=== PATIENT | female | born 1985 | race Caucasian/White ===

== ENCOUNTER 2021-10-13 09:49 | Emergency (ER) | payer BC, SELFPAY ==
--- NOTE | ~2021-10-13 | XR_ITS ---
EXAMINATION: XR heel RT min 2V DATE: 10/13/2021 10:17 INDICATION: Right Achilles tendon pain. TECHNIQUE: 2 views of right calcaneus on 3 radiographs were obtained. COMPARISON: None. FINDINGS: Bone alignment is normal. No fracture. Joint spaces are normal. There are small enthesophyt es at posterior and plantar aspects of calcaneal tuberosity. IMPRESSION: 1. No fracture. Reviewed, dictated and finalized at location A. IMPRESSION: 1. No fracture.
--- NOTE | 2021-10-13 09:56 | ED.LOWEXIN ---
HPI - Extremity Injury (Lower) General Chief Complaint: Extremity Injury, Lower Stated Complaint: Right Heel Pain Time Seen by Provider: 10/13/21 10:18 Source: patient and RN notes reviewed Mode of arrival: ambulatory Limitations: no limitations History of Present Illness HPI Narrative: 36-year-old female presents with concern for right heel pain that started 2 weeks ago. Reports pain worsens with certain range of motion of the foot. Reports a pulling type pain when she walks. She reports a slight numbness and tingling in the back of her foot. She denies any direct injury or trauma. She denies redness, warmth, swelling, open skin. MD complaint: foot injury Related Data Home Medications Medication Instructions Recorded Confirmed citalopram 20 mg PO DAILY 10/13/21 10/13/21 sulfamethoxazole-trimethoprim 1 tablet PO QID 10/13/21 10/13/21 Allergies Allergy/AdvReac Type Severity Reaction Status Date / Time No Known Allergies Allergy Unverified 10/13/21 10:01 Review of Systems Review of Systems: CONSTITUTIONAL: Denies malaise, chills, sweats, or fever. SKIN: Denies rash or itching, open skin, laceration, abrasion, redness, warmth, swelling. MUSCULOSKELETAL: Reports right heel pain NEUROLOGIC: Denies numbness, weakness All systems reviewed & are unremarkable except as noted in HPI and below PMFSH Comments At time of signature, agree with nursing past medical, surgical, social and family history. There is no relevant family history pertinent to the presenting complaint Exam Narrative: GENERAL: Well-appearing, well-nourished, and in no acute distress. HEAD: Normocephalic, atraumatic. EYES: PERRLA, conjunctivae clear NECK: Supple. CHEST: Speaks in full sentences. No respiratory distress. HEART: Regular rate and rhythm. Normal and equal peripheral pulses. EXTREMITIES: Right ankle, foot, digits have normal strength and sensation, normal range of motion. No edema or ecchymosis. 5/5 strength with ankle and digit flexion and extension. Normal sensation with sensitivity to light touch and pain. No point tenderness. No open wounds, no skin tenting, no devitalized tissue or atrophy, no trophic changes, no obvious deformity, alignment normal, nearby joints and structures intact. Distal pulses palpable and equal bilaterally, skin warm, dry, pink. Capillary refill less than 3 seconds. SKIN: Warm, dry, no rash. NEURO: Alert and oriented x3. PSYCH: Normal mood and affect Course Course Emergency Course: Patient is aware of diagnosis, understands and agrees to treatment plan. Anticipatory guidance given. Patient agrees to follow-up as directed and is aware of reasons to seek care at the emergency department. Portions of this record may have been created with voice recognition software Level of Care: Express Care Visit Vital Signs Vital signs: Reviewed. MDM - Extremity Injury (Lower) MDM Narrative Medical decision making narrative: Patients pain is consistent with musculoskeletal etiology. No signs of neurological or vascular compromise on exam. Compartments and tissues are soft without signs of compartment syndrome. Pain is felt appropriate for further evaluation on an outpatient basis. Critical Care Time Critical Care Time Critical Care Time: No Discharge Plan Discharge Clinical Impression: Calcaneal spur Qualifiers: Laterality: right Qualified Code(s): M77.31 - Calcaneal spur, right foot Patient Disposition: Home, Self-Care Condition: Stable Instructions: Heel Spur (ED) Additional Instructions: Your x-ray shows very small bone spur which may or may not be causing her pain. Please follow-up with podiatry for further evaluation. You may use supportive shoes or shoe inserts to improve pain. Take ibuprofen 2-3 times a day for the next 3 to 4 days for inflammation. If you have any urgent concerns please go to the emergency room. Prescriptions: No Action citalopram 20 mg tablet 20 mg PO DAILY RF: 0 sulf
[2021-10-13 09:57] VITALS: BP 139/89; PULSE 84; RESP 16; TEMP 36.7; O2SAT 99
== END 2021-10-13 10:34 | disposition home or self-care (01) ==
PROVIDERS: Emergency Provider Nurse Practitioner; PCP Internal Medicine
DX: M77.31 Calcaneal spur, right foot (principal); Z85.41 Personal history of malignant neoplasm of cervix uteri
CPT/HCPCS: 73650; 99203; G0463

== ENCOUNTER 2021-12-10 10:28 | Emergency (ER) | payer BC, SELFPAY ==
[2021-12-10 10:40] VITALS: BP 130/85; PULSE 90; RESP 20; TEMP 36.9; O2SAT 99
--- NOTE | 2021-12-10 11:40 | ED.GENADULT ---
HPI - General Adult General Chief complaint: Upper Respiratory Infection Stated complaint: needs influenza test for work Source: patient Mode of arrival: ambulatory Limitations: no limitations History of Present Illness HPI narrative: Patient presents for evaluation of sick symptoms since yesterday. Symptoms include sinus congestion, body aches, sore throat, productive cough of thick green sputum. No fever, chills, nausea, vomiting, diarrhea. She had COVID in June of this year. They were recently individuals at her place of employment that had flu. She has already taken a COVID test which was negative. She uses an electronic cigarette. No additional complaints or concerns. Related Data Home Medications Medication Instructions Recorded Confirmed citalopram 20 mg tablet 20 mg PO DAILY 10/13/21 12/10/21 venlafaxine 75 mg capsule,extended 1 cap PO DAILY 12/10/21 12/10/21 release 24 hr Allergies Allergy/AdvReac Type Severity Reaction Status Date / Time No Known Allergies Allergy Unverified 12/10/21 10:48 [facility] Past Medical History Medical History History of cervical cancer Tobacco use Surgical History Surgical History No pertinent past surgical history Family History Family History Father Hypertension Heart disease Social History Social History Smoking status: Current every day smoker Tobacco type: e-cigarettes/vaping Substance use: never Living arrangements: with family Gender identity (if verbalized by the patient): Female Sexual Orientation (if Verbalized by the Patient): Straight or Heterosexual Spiritual care concerns: No Exam Narrative: GENERAL: Well-appearing, well-nourished, and in no acute distress. HEAD: Normocephalic, atraumatic. EYES: PERRLA and EOMI. ENT: Nares clear, no rhinorrhea or epistaxis. Mucous membranes moist. Oropharynx without tonsillar hypertrophy exudate or other lesions. Bilateral TMs pearly coulter nonbulging NECK: Supple. No adenopathy or masses. No carotid bruits or JVD CHEST: Clear to auscultation. No respiratory distress. No wheezes rales or rhonchi HEART: Regular rate and rhythm. No murmur heard. Normal peripheral pulses. ABDOMEN: Soft, nontender, nondistended, normal active bowel sounds. EXTREMITIES: Normal range of motion. No edema. SKIN: Warm, dry, no rash. NEURO: No focal deficits. Alert and oriented x3. PSYCH: Normal mood and affect. Course Course Emergency Course: This is a 36-year-old female who presented with complaints of sick symptoms. She had already had a COVID test which was negative. Influenza and strep were negative. Exam is consistent with acute viral syndrome. Offered prescription for symptom management. She declined. Follow-up outpatient for further evaluation and treatment. She has some eutv-adr-zifpuje remedies at home. Increase hydration. Go to the ER for declining condition. Patient agreed with plan of care. Level of Care: Express Care Visit Vital Signs Vital signs: Vital Signs Temperature 36.9 C 12/10/21 10:40 Pulse Rate 90 12/10/21 10:40 Respiratory Rate 20 12/10/21 10:40 Blood Pressure 130/85 12/10/21 10:40 Pulse Oximetry 99 12/10/21 10:40 Oxygen Delivery Room Air 12/10/21 10:40 Temperature 36.9 C 12/10/21 10:40 Pulse Rate 90 12/10/21 10:40 Respiratory Rate 20 12/10/21 10:40 Blood Pressure 130/85 12/10/21 10:40 Pulse Oximetry 99 12/10/21 10:40 Oxygen Delivery Room Air 12/10/21 10:40 Medical Decision Making Vital Signs Vital Signs: Vital Signs Temperature 36.9 C 12/10/21 10:40 Pulse Rate 90 12/10/21 10:40 Respiratory Rate 20 12/10/21 10:40 Blood Pressure 130/85 12/10/21 10:40 Pulse Oximetry 99 12/10/21 10:40 Oxygen Delivery Room Air 12/10/21 10:40
== END 2021-12-10 12:45 | disposition home or self-care (01) ==
PROVIDERS: Emergency Provider Nurse Practitioner; PCP Internal Medicine
DX: J06.9 Acute upper respiratory infection, unspecified (principal); F17.290 Nicotine dependence, other tobacco product, uncomplicated; Z85.41 Personal history of malignant neoplasm of cervix uteri; Z86.16 Personal history of COVID-19
CPT/HCPCS: 87081; 87804; 87880; 99213; G0463

== ENCOUNTER 2022-01-31 16:15 | Emergency (ER) | payer BC, SELFPAY ==
[2022-01-31 16:20] VITALS: BP 134/87; PULSE 99; RESP 18; TEMP 36.3; O2SAT 98
--- NOTE | 2022-01-31 16:51 | ED.GENADULT ---
HPI - General Adult General Chief complaint: Skin/Abscess/Foreign Body Stated complaint: poison jeanie / ring worm Source: patient Mode of arrival: ambulatory Limitations: no limitations History of Present Illness HPI narrative: Patient presents for evaluation of skin issues. She indicates she has had pruritic lesions to the bilateral lower and bilateral upper extremities for about 1.5 weeks. She had been pulling weeds prior to that time and believes she was exposed to poison jeanie. She now has scabbed lesions to extremities x 4. Pruritus is improving. No new lotions, soaps, detergents, topical products prior to the time of symptom onset. She also reports a pruritic area of erythema to the right hand. She believes she has ringworm. She tried some wdlb-izf-lcnrybp agent with some mild improvement in her symptoms or after. No additional complaints or concerns Related Data Home Medications Medication Instructions Recorded Confirmed citalopram 20 mg tablet 20 mg PO DAILY 10/13/21 12/10/21 venlafaxine 75 mg capsule,extended 1 cap PO DAILY 12/10/21 12/10/21 release 24 hr Allergies Allergy/AdvReac Type Severity Reaction Status Date / Time No Known Allergies Allergy Unverified 01/31/22 16:44 Review of Systems Review of Systems: CONSTITUTIONAL: Denies fever, chills, or sweats. EYES: Denies visual changes, redness, or discharge. ENT: Denies rhinorrhea, congestion, sore throat, or otalgia. CARDIOVASCULAR: Denies chest pain, palpitations, or edema. RESPIRATORY: Denies cough or dyspnea. GASTROINTESTINAL: Denies abdominal pain, nausea, vomiting, or diarrhea. GENITOURINARY: Denies dysuria or hematuria. SKIN: Reports itching to extremities x4. Reports scabbed lesions to extremities x4. Reports annular area of erythema to the right hand. MUSCULOSKELETAL: Denies back pain, joint pain, or myalgia. NEUROLOGIC: Denies headache, numbness, dizziness, or weakness. PSYCHIATRIC: Denies anxiety or depression. [facility] Past Medical History Medical History History of cervical cancer Tobacco use Surgical History Surgical History No pertinent past surgical history Family History Family History Father Hypertension Heart disease Social History Social History Smoking status: Current every day smoker Tobacco type: e-cigarettes/vaping Substance use: never Gender identity (if verbalized by the patient): Female Sexual Orientation (if Verbalized by the Patient): Straight or Heterosexual Spiritual care concerns: No Exam Narrative: GENERAL: Well-appearing, well-nourished, and in no acute distress. HEAD: Normocephalic, atraumatic. EYES: PERRLA and EOMI. ENT: Nares clear, no rhinorrhea or epistaxis. Mucous membranes moist. Oropharynx without tonsillar hypertrophy exudate or other lesions. Bilateral TMs pearly coulter nonbulging NECK: Supple. No adenopathy or masses. No carotid bruits or JVD CHEST: Clear to auscultation. No respiratory distress. No wheezes rales or rhonchi HEART: Regular rate and rhythm. No murmur heard. Normal peripheral pulses. ABDOMEN: Soft, nontender, nondistended, normal active bowel sounds. EXTREMITIES: Normal range of motion. No edema. SKIN: There is an annular area of erythema to the right hand. There are several scabbed lesions noted to bilateral upper extremities. There are many scabbed lesions to BLE NEURO: No focal deficits. Alert and oriented x3. PSYCH: Normal mood and affect. Course Course Emergency Course: This is a 37-year-old female who presented for evaluation of skin issues. She appears to have tinea infection of her right hand. We will treat with ketoconazole. She has been exposed to poison jeanie and has several scabbed lesions to her bilateral upper extremities and many skin lesions to bilateral lower extre
== END 2022-01-31 16:45 | disposition home or self-care (01) ==
PROVIDERS: Emergency Provider Nurse Practitioner; PCP Internal Medicine
DX: L23.7 Allergic contact dermatitis due to plants, except food (principal); B35.4 Tinea corporis; Z85.41 Personal history of malignant neoplasm of cervix uteri; F17.290 Nicotine dependence, other tobacco product, uncomplicated
CPT/HCPCS: 99213; G0463

== ENCOUNTER 2023-04-01 13:28 | Emergency (ER) | payer BC, SELFPAY ==
--- NOTE | ~2023-04-01 | XR_ITS ---
EXAMINATION: XR hip RT 2V w AP pelvis DATE: 04/01/2023 14:07 INDICATION: Right hip pain post fall TECHNIQUE: Anteroposterior view of the pelvis and anteroposterior and frog-leg lateral views of the r ight hip were obtained. COMPARISON: None. FINDINGS: Bone alignment is normal. No fracture. Mild osteoarthritis of the bilateral sacroiliac joints. Bilate ral hip joint spaces appear relatively preserved. Small right os acetabulum. A few phleboliths in the pelvis. IMPRESSION: 1. Mild bilateral sacroiliac osteoarthritis. No acute osseous abnormality. Reviewed, dictated and finalized at location A.
--- NOTE | ~2023-04-01 | XR_ITS ---
EXAMINATION: XR lumbar spine min 4V DATE: 04/01/2023 14:07 INDICATION: Low back pain post fall TECHNIQUE: Anteroposterior, lateral, and bilateral oblique views of the lumbar spine, and cone-down l ateral view of the lumbosacral junction were obtained. COMPARISON: None. FINDINGS: Alignment is normal. Vertebral body heights are normal. Mild disc height loss with mild degenerative endplate changes at T10-T11 through L3-L4. Minimal disc height loss at L4-L5 and L5-S1. No pars inter articularis defects. No fractures identified. Mild to moderate lower lumbar predominant facet osteoar thritis. The bowel gas pattern is unremarkable. IMPRESSION: 1. Mild lumbar spondylosis. Reviewed, dictated and finalized at location A. IMPRESSION: 1. Mild lumbar spondylosis.
[2023-04-01 13:40] VITALS: BP 118/76; PULSE 89; RESP 16; TEMP 36.7; O2SAT 98
--- NOTE | 2023-04-01 13:45 | ED.FALL ---
HPI - Fall General Chief Complaint: Back Pain/Injury Stated Complaint: Fall Injury/Low Back and Hip Pain Right History of Present Illness HPI Narrative: PATIENT PRESENTS FOR EVALUATION OF A FALL THAT OCCURRED 1 WEEK AGO. PATIENT STATES SHE IS RECEIVED CHEMO AND RADIATION FOR CERVICAL CANCER 2 YEARS AGO AND CONTINUES TO HAVE RIGHT LOWER BACK HIP PAIN. PATIENT REPORTS TAKING IBUPROFEN WITH MINIMAL RELIEF IN HER PAIN AND DISCOMFORT. PATIENT DENIES ANY NUMBNESS OR TINGLING NO BOWEL OR BLADDER PROBLEMS. NO SADDLE ANESTHESIA Related Data Home Medications Medication Instructions Recorded Confirmed venlafaxine 75 mg capsule,extended 1 cap PO DAILY 12/10/21 04/01/23 release 24 hr Allergies Allergy/AdvReac Type Severity Reaction Status Date / Time No Known Allergies Allergy Verified 04/01/23 13:45 Review of Systems Review of Systems: CONSTITUTIONAL: DENIES FEVER, CHILLS, OR SWEATS. EYES: DENIES VISUAL CHANGES, REDNESS, OR DISCHARGE. ENT: DENIES RHINORRHEA, CONGESTION, SORE THROAT, OR OTALGIA. CARDIOVASCULAR: DENIES CHEST PAIN, PALPITATIONS, OR EDEMA. RESPIRATORY: DENIES COUGH OR DYSPNEA. GASTROINTESTINAL: DENIES ABDOMINAL PAIN, NAUSEA, VOMITING, OR DIARRHEA. GENITOURINARY: DENIES DYSURIA OR HEMATURIA. SKIN: DENIES RASH OR ITCHING. MUSCULOSKELETAL: DENIES BACK PAIN, JOINT PAIN, OR MYALGIA. NEUROLOGIC: DENIES HEADACHE, NUMBNESS, OR WEAKNESS. PSYCHIATRIC: DENIES ANXIETY OR DEPRESSION. [facility] Past Medical History Medical History History of cervical cancer Tobacco use Surgical History Surgical History No pertinent past surgical history Family History Family History Father Hypertension Heart disease Social History Social History Smoking status: Current every day smoker Tobacco type: e-cigarettes/vaping Substance use: never Living arrangements: with family Gender identity (if verbalized by the patient): Female Sexual Orientation (if Verbalized by the Patient): Straight or Heterosexual Spiritual care concerns: No Comments AT TIME OF SIGNATURE, AGREE WITH NURSING PAST MEDICAL, SURGICAL, SOCIAL AND FAMILY HISTORY. THERE IS NO RELEVANT FAMILY HISTORY PERTINENT TO THE PRESENTING COMPLAINT Exam Narrative: GENERAL: WELL-APPEARING, WELL-NOURISHED, AND IN NO ACUTE DISTRESS. HEAD: NORMOCEPHALIC, ATRAUMATIC. EYES: PERRLA AND EOMI. ENT: NARES CLEAR, NO RHINORRHEA OR EPISTAXIS. MUCOUS MEMBRANES MOIST. NECK: SUPPLE. CHEST: CLEAR TO AUSCULTATION. NO RESPIRATORY DISTRESS. HEART: REGULAR RATE AND RHYTHM. NO MURMUR HEARD. NORMAL PERIPHERAL PULSES. ABDOMEN: SOFT, NONTENDER, NONDISTENDED, NORMAL ACTIVE BOWEL SOUNDS. EXTREMITIES: NORMAL RANGE OF MOTION. NO EDEMA. RIGHT-SIDED BACK PAIN BACK PAIN RIGHT-SIDED SPINE MIDLINE. NO CURVATURE APPARENT. NO NOVERTEBRAL POINT SPECIFIC TENDERNESS. NO DEFORMITY. NO STEP-OFFS. NORMAL LE STRENGTH BILATERALLY. NORMAL LE SENSATION BILATERALLY. ABLE TO WALK ON TOES AND HEELS WITH NORMAL DORSIFLEXION AND PLANTAR FLEXION STRENGTH. NO WEAKNESS OBSERVED WITH GAIT. RIGHT PARASPINAL MUSCLE TENDERNESS. RIGHT SI JOINT TENDERNESS. FLEXION AND EXTENSION ROM NORMAL, ONLY SLIGHT LIMITATION. SKIN: WARM, DRY, NO RASH. NEURO: NO FOCAL DEFICITS. ALERT AND ORIENTED X3. TARA COMA SCALE EYE OPENING: SPONTANEOUS 4 TARA COMA SCALE MOTOR: OBEYS COMMANDS 6 TARA COMA SCALE VERBAL: ORIENTED 5 TARA COMA SCALE TOTAL 15 Course Course Level of Care: Express Care Visit Vital Signs Vital signs: Vital Signs Temperature 36.7 C 04/01/23 13:40 Pulse Rate 89 04/01/23 13:40 Respiratory Rate 16 04/01/23 13:40 Blood Pressure 118/76 04/01/23 13:40 Pulse Oximetry 98 04/01/23 13:40 Oxygen Delivery Room Air 04/01/23 13:40 Temperature 36.7 C 04/01/23 13:40 Pulse Rate 89 04/01/23 1
== END 2023-04-01 15:12 | disposition home or self-care (01) ==
PROVIDERS: Emergency Provider Nurse Practitioner Family; PCP Internal Medicine
DX: M54.50 Low back pain, unspecified (principal); W19.XXXA Unspecified fall, initial encounter; F17.290 Nicotine dependence, other tobacco product, uncomplicated; Z92.21 Personal history of antineoplastic chemotherapy; Z92.3 Personal history of irradiation; Z85.41 Personal history of malignant neoplasm of cervix uteri
CPT/HCPCS: 72110; 73502; 99214; G0463

== ENCOUNTER 2023-07-23 10:42 | Emergency (ER) | payer BC, SELFPAY ==
[2023-07-23 10:50] VITALS: BP 119/71; PULSE 87; RESP 20; TEMP 36.8; O2SAT 98
--- NOTE | 2023-07-23 10:53 | ED.GENADULT ---
HPI - General Adult General Chief complaint: Headache Stated complaint: migraine Source: patient, RN notes reviewed and old records reviewed Mode of arrival: ambulatory Limitations: no limitations History of Present Illness HPI narrative: 48-year-old female presents to [facility] with complaint of headache this started 5 days ago. Patient states has a history of migraine. This is like her normal migraine. Patient taking pgzq-ffy-cymeuar medications with no relief. Patient denies any other symptoms MD complaint: headache Onset (ago): day(s) (5) Related Data Home Medications Medication Instructions Recorded Confirmed No Home Medications 07/23/23 07/23/23 Allergies Allergy/AdvReac Type Severity Reaction Status Date / Time No Known Allergies Allergy Verified 07/23/23 10:49 Review of Systems Constitutional: Constitutional: Reports no additional constitutional complaints, Denies body ache(s), Denies chills, Denies fatigue, Denies fever(s) and Reports headache(s) Eyes: Eyes: Reports no additional eye complaints and Denies blurry vision ENT: Reports system reviewed and no additional complaints, except as documented, Denies vertigo, Denies dizziness, Denies ear discharge, Denies otalgia, Denies facial pain, Denies headache(s), Denies nasal congestion, Denies nasal discharge, Denies sinus pain, Denies sinus pressure and Denies sore throat Cardiovascular: Cardiovascular: Reports no additional cardiovascular complaints, Denies chest pain, Denies chest pain at rest, Denies rapid heart rate and Denies dyspnea Respiratory: Respiratory: Reports no additional respiratory complaints, Denies chest congestion, Denies cough, Denies pain on inspiration, Denies pain with cough and Denies dyspnea Gastrointestinal: Gastrointestinal: Denies abdominal pain, Denies diarrhea, Denies nausea and Denies vomiting Integumentary/Breasts: Skin/Breast: Denies rash Neurologic: Reports system reviewed and no additional complaints, except as documented, Denies vertigo, Denies dizziness and Reports headache(s) Endocrine: Endocrine: Denies fatigue PMFSH Past Medical History Medical History History of cervical cancer Tobacco use Surgical History Surgical History No pertinent past surgical history Family History Family History Father Hypertension Heart disease Social History Social History Smoking status: Current every day smoker Tobacco type: e-cigarettes/vaping Substance use: never Living arrangements: with family Gender identity (if verbalized by the patient): Female Sexual Orientation (if Verbalized by the Patient): Straight or Heterosexual Spiritual care concerns: No Comments At the time of my signature, I reviewed and agree with the nursing past medical, surgical, social, and family history. There is no relevant family history pertinent to the patient complaint. Exam Const: General: cooperative, healthy appearing, no acute distress and well nourished Nutritional Appearance: well nourished Orientation/consciousness: patient oriented x3 Limitations: no limitations HENMT: Head: normal to inspection and normocephalic Ears: external ears normal, TM's normal bilaterally, mastoids normal and Abnormal EAC present Face/Nose/Sinus: normal facial exam Face and sinus: normal facial exam Mouth: Yes Normal oral and palatal mucosa present, Yes oropharynx normal and Yes moist mucous membranes Throat: tonsils normal, uvula midline and no uvular edema Eyes: General: appearance normal, both eyes and all related structures Sclera: sclerae normal Pupils: Equal, round and reactive pupils present Resp: Effort & Inspection: normal respiratory effort, able to speak in complete sentences, no audible wheezes, no cough, no respiratory distress and no retractions
[2023-07-23] MEDS: KETOROLAC (*BKC) 60 MG/2 ML VIAL IM (11:11)
== END 2023-07-23 11:30 | disposition home or self-care (01) ==
PROVIDERS: Emergency Provider Registered Nurse; PCP Internal Medicine
DX: G43.919 Migraine, unspecified, intractable, without status migrainosus (principal); F17.290 Nicotine dependence, other tobacco product, uncomplicated; Z85.41 Personal history of malignant neoplasm of cervix uteri
CPT/HCPCS: 96372; 99213; G0463; J1885

== ENCOUNTER 2023-10-12 12:14 | Emergency (ER) | payer BC, SELFPAY ==
[2023-10-12 12:25] VITALS: BP 136/68; PULSE 106; RESP 16; TEMP 36.2; O2SAT 98
--- NOTE | 2023-10-12 12:46 | ED.URI ---
HPI - URI/Sore Throat General Chief Complaint: Upper Respiratory Infection Stated Complaint: sinus/aches/throat/fever Time Seen by Provider: 10/12/23 12:47 Source: patient, RN notes reviewed and old records reviewed Mode of arrival: ambulatory Limitations: no limitations History of Present Illness HPI Narrative: 38-year-old female presents to the [facility] with body aches, sore throat, subjective fever and sinus congestion that started yesterday. Has taken ibuprofen. 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(s) (1) Related Data Allergies Allergy/AdvReac Type Severity Reaction Status Date / Time No Known Allergies Allergy Verified 10/12/23 13:16 Review of Systems Review of Systems: All systems reviewed & are unremarkable except as noted in HPI and below Constitutional: Constitutional: Reports as per HPI and Reports body ache(s) Eyes: Eyes: Reports no additional eye complaints ENT: Reports as per HPI, Reports nasal congestion, Reports sinus pain and Reports sore throat Cardiovascular: Cardiovascular: Reports no additional cardiovascular complaints, Denies chest pain and Denies dyspnea Respiratory: Respiratory: Reports no additional respiratory complaints, Denies chest congestion, Denies cough and Denies dyspnea Gastrointestinal: Gastrointestinal: Reports no additional gastrointestinal complaints, Denies abdominal pain, Denies nausea and Denies vomiting Musculoskeletal: Musculoskeletal: Reports no additional musculoskeletal complaints Integumentary/Breasts: Skin/Breast: Reports system reviewed and no additional complaints, except as docu Neurologic: Reports system reviewed and no additional complaints, except as documented Psychiatric: Psychiatric: Reports no additional psychiatric complaints Allergic/Immunologic: Allergic/Immunologic: Reports no additional allergic/immunologic complaints [facility] Past Medical History Medical History History of cervical cancer Tobacco use Surgical History Surgical History No pertinent past surgical history Family History Family History Father Hypertension Heart disease Social History Social History Smoking status: Current every day smoker Tobacco type: e-cigarettes/vaping Substance use: never Living arrangements: with family Gender identity (if verbalized by the patient): Female Sexual Orientation (if Verbalized by the Patient): Straight or Heterosexual Spiritual care concerns: No Comments At the time of my signature, I reviewed and agree with the nursing past medical, surgical, social, and family history. There is no relevant family history pertinent to the patient complaint. Exam Const: General: cooperative, healthy appearing, comfortable, no acute distress, well developed, alert and well nourished Nutritional Appearance: well nourished Orientation/consciousness: patient oriented x3 Limitations: no limitations HENMT: Head: normal to inspection Ears: hearing grossly normal bilaterally, external ears normal, TM's normal bilaterally, EAC's normal, mastoids normal and no periauricular adenopathy Face/Nose/Sinus: Normal external nose present, Normal nares present, Normal nasal mucous membranes and turbinates present, normal facial exam and face symmetric Face and sinus: normal facial exam and face symmetric Mouth: Yes Normal oral and palatal mucosa present, Yes lip normal and Yes moist mucous membranes Throat: posterior oropharynx normal, tonsils normal, uvula midline, postnasal drainage and no uvular edema Eyes: General: appearance normal, both eyes and all related structures Alignment and Position: alignment normal Periorbital: periorbital findings normal Pupils: Equal, round and reactive pupils present EOM: EOMs intact bilaterally Neck: Neck: normal visual inspection, full
== END 2023-10-12 13:22 | disposition home or self-care (01) ==
PROVIDERS: Emergency Provider Nurse Practitioner; PCP Internal Medicine
DX: J02.0 Streptococcal pharyngitis (principal); Z20.822 Contact with and (suspected) exposure to COVID-19; F17.290 Nicotine dependence, other tobacco product, uncomplicated; Z85.41 Personal history of malignant neoplasm of cervix uteri
CPT/HCPCS: 87426; 87804; 87880; 99213; G0463

== ENCOUNTER 2024-04-11 08:25 | Emergency (ER) | payer SELFPAY ==
[2024-04-11 08:29] VITALS: BP 113/61; PULSE 95; RESP 18; TEMP 36.3; O2SAT 99
--- NOTE | 2024-04-11 08:38 | ED.URI ---
HPI - URI/Sore Throat General Chief Complaint: Upper Respiratory Infection Stated Complaint: poss pnuemonia Time Seen by Provider: 04/11/24 08:38 Source: patient Mode of arrival: ambulatory Limitations: no limitations History of Present Illness HPI Narrative: 39-year-old female presents with complaint of cough, chest congestion, fatigue, body aches for 3-4 days. Patient reports that she has had pneumonia exposure. States that her son was in ICU for mycoplasma pneumonia. Patient is afebrile. Reports shortness of breath with exertion. Not taking any qsgm-jml-ozyawfu medications to treat her symptoms. All systems reviewed and negative except as noted above. Related Data Home Medications Medication Instructions Recorded Confirmed Effexor 04/11/24 Allergies Allergy/AdvReac Type Severity Reaction Status Date / Time No Known Allergies Allergy Verified 04/11/24 08:39 Review of Systems Review of Systems: CONSTITUTIONAL: Denies fever, chills, or sweats. EYES: Denies visual changes, redness, or discharge. ENT: Reports rhinorrhea, congestion. Denies sore throat, or otalgia. CARDIOVASCULAR: Denies chest pain, palpitations, or edema. RESPIRATORY: reports cough, chest congestion, dyspnea with exertion. GASTROINTESTINAL: Denies abdominal pain, nausea, vomiting, or diarrhea. GENITOURINARY: Denies dysuria or hematuria. SKIN: Denies rash or itching. MUSCULOSKELETAL: Denies back pain, joint pain, or myalgia. NEUROLOGIC: Denies headache, numbness, or weakness. PSYCHIATRIC: Denies anxiety or depression. All other systems reviewed are negative, except as documented in HPI. [facility] Past Medical History Medical History History of cervical cancer Tobacco use Surgical History Surgical History No pertinent past surgical history Family History Family History Father Hypertension Heart disease Social History Social History Smoking status: Current every day smoker Tobacco type: e-cigarettes/vaping Substance use: never Living arrangements: with family Gender identity (if verbalized by the patient): Female Sexual Orientation (if Verbalized by the Patient): Straight or Heterosexual Spiritual care concerns: No Comments At time of signature, agree with nursing past medical, surgical, social and family history. There is no relevant family history pertinent to the presenting complaint. Exam Narrative: GENERAL: This is a well-nourished, well-developed patient, Ill-appearing but no acute distress HEAD: normocephalic, atraumatic. EYES: PERRL. Sclera clear/white. Vision is grossly intact. EARS: External ears normal, auditory canals clear and without drainage, TMs normal without perforation. Hearing grossly intact. NOSE: External nose normal with clear nasal drainage, mild congestion THROAT: Mucous membranes moist, posterior pharynx clear. NECK: Neck supple, non-tender without lymphadenopathy, masses or thyromegaly. CARDIOVASCULAR: Regular rate and rhythm without murmurs, gallops, or rubs. RESPIRATORY: mildly decreased to lower lung rosas otherwise clear. Breath sounds equal bilaterally. No wheezes, rales, or rhonchi. SKIN: warm, Dry, intact with no suspicious lesions or rash, good texture and turgor. NEURO: awake, alert, and oriented to person, place and time. There were no obvious focal neurologic abnormalities. EXTREMITIES: No joint tenderness, effusion, or edema noted. Course Course Level of Care: Express Care Visit Vital Signs Vital signs: Vital Signs Temperature 36.3 C L 04/11/24 08:29 Pulse Rate 95 04/11/24 08:29 Respiratory Rate 18 04/11/24 08:29 Blood Pressure 113/61 04/11/24 08:29 Pulse Oximetry 99 04/11/24 08:29 Oxygen Delivery Room Air 04/11/24 08:29 Temperature 36.3 C L 04/11/24 08:29 Pulse Rate 95 04/11/24 08:29 Respiratory Rate 18 04/11/24 08:29 Blood Pressure 113/61 04/11/24 08:29 Pulse Oximetry 99 04/11/24 08:29 Oxygen Delivery Room Air 04/11/24 08:29 reviewed MDM - URI/Sore Throat MDM Narrative Medical decision making narrative: will treat patient for a pneumonia exposure with azithromycin due to patient's son recently and ICU for pneumonia. No respiratory distress , vital signs stable. Patient is aware of diagnosis, understands and agrees to treatment plan. Anticipatory guidance given. Patient agrees to follow-up as directed and is aware of reasons to seek care at the emergency department. Portions of this record may have been created with voice recognition software Differential Diagnosis Differential diagnosis: Likely upper respiratory infection, sinusitis, viral infection, bronchitis, influenza and other ( pneumonia) Discharge Plan Discharge Clinical Impression: Upper respiratory infection with cough and congestion, Exposure to pneumonia Patient Disposition: Home, Self-Care Condition: Stable Instructions: Antibiotic Form, Pneumonia (ED) Additional Instructions: take medications as prescribed. Take [id number] Mucinex as directed on packaging. Drink at least 64 oz of water a day. Follow-up your primary care physician if symptoms are not improving. Prescriptions: New azithromycin 250 mg tablet See Rx Instructions .ROUTE .COMPLEX Qty: 6 0RF Rx Instructions: For 250 mg dose pack: take 500 mg today (day 1), then 250 mg for 4 days (days 2-5) benzonatate 200 mg capsule 200 mg PO TID PRN (Reason: cough) Qty: 20 0RF No Action Effexor Follow-up/Referrals: Memo,MD Poly [Primary Care Provider] - Time of Disposition: 08:44
== END 2024-04-11 08:47 | disposition home or self-care (01) ==
PROVIDERS: Emergency Provider Nurse Practitioner Family; PCP Internal Medicine
DX: J06.9 Acute upper respiratory infection, unspecified (principal); Z20.89 Contact with and (suspected) exposure to other communicable diseases; F17.290 Nicotine dependence, other tobacco product, uncomplicated; Z85.41 Personal history of malignant neoplasm of cervix uteri
CPT/HCPCS: 99213; G0463

== ENCOUNTER 2024-06-14 18:05 | Emergency (ER) | payer SELFPAY ==
[2024-06-14 18:10] VITALS: BP 127/71; PULSE 115; RESP 20; TEMP 37.4; O2SAT 98
--- NOTE | 2024-06-14 18:18 | ED.URI ---
HPI - URI/Sore Throat General Chief Complaint: Upper Respiratory Infection Stated Complaint: Fever/Dizziness/Cough Time Seen by Provider: 06/14/24 18:18 Source: patient Mode of arrival: ambulatory Limitations: no limitations History of Present Illness HPI Narrative: 39-year-old female presents with complaint of cough, congestion, fatigue, body aches, chills for 2 days with tactile fever. Taking eirj-mgt-jwjppdb [place] cold and flu to treat symptoms. Reports mild nausea. No vomiting or diarrhea. No chest pain or shortness of breath. Took two home COVID test and both were negative. All systems reviewed and negative except as noted above. Related Data Home Medications ?Medication ?Instructions ?Recorded ?Confirmed ?Last Taken ?Type Effexor 04/11/24 Unknown History Allergies Allergy/AdvReac Type Severity Reaction Status Date / Time No Known Allergies Allergy Verified 04/11/24 08:39 Review of Systems Review of Systems: CONSTITUTIONAL: reports fever, chills, or sweats. EYES: Denies visual changes, redness, or discharge. ENT: reports rhinorrhea, congestion. Denies sore throat, or otalgia. CARDIOVASCULAR: Denies chest pain, palpitations, or edema. RESPIRATORY: reports cough or dyspnea. GASTROINTESTINAL: Denies abdominal pain. Reports nausea. Denies vomiting, or diarrhea. GENITOURINARY: Denies dysuria or hematuria. SKIN: Denies rash or itching. MUSCULOSKELETAL: Denies back pain, joint pain, or myalgia. NEUROLOGIC: Denies headache, numbness, or weakness. PSYCHIATRIC: Denies anxiety or depression. All other systems reviewed are negative, except as documented in HPI. [facility] Past Medical History Medical History History of cervical cancer Tobacco use Surgical History Surgical History No pertinent past surgical history Family History Family History Father Hypertension Heart disease Social History Social History Smoking status: Current every day smoker Tobacco type: e-cigarettes/vaping Substance use: never Living arrangements: with family Gender identity (if verbalized by the patient): Female Sexual Orientation (if Verbalized by the Patient): Straight or Heterosexual Spiritual care concerns: No Comments At time of signature, agree with nursing past medical, surgical, social and family history. There is no relevant family history pertinent to the presenting complaint. Exam Narrative: GENERAL: This is a well-nourished, well-developed patient, ill-appearing but no acute distress HEAD: normocephalic, atraumatic. EYES: PERRL. Sclera clear/white. Vision is grossly intact. EARS: External ears normal, auditory canals clear and without drainage, TMs normal without perforation. Hearing grossly intact. NOSE: External nose normal with clear nasal drainage, mild congestion THROAT: Mucous membranes moist, mild erythema with postnasal drainage. No swelling or exudates NECK: Neck supple, non-tender without lymphadenopathy, masses or thyromegaly. CARDIOVASCULAR: Regular rate and rhythm without murmurs, gallops, or rubs. RESPIRATORY: Clear to auscultation. Breath sounds equal bilaterally. No wheezes, rales, or rhonchi. SKIN: warm, Dry, intact with no suspicious lesions or rash, good texture and turgor. NEURO: awake, alert, and oriented to person, place and time. There were no obvious focal neurologic abnormalities. EXTREMITIES: No joint tenderness, effusion, or edema noted. Course Course Level of Care: Express Care Visit Vital Signs Vital signs: Vital Signs Temperature 37.4 C 06/14/24 18:10 Pulse Rate 115 H 06/14/24 18:10 Respiratory Rate 20 06/14/24 18:10 Blood Pressure 127/71 06/14/24 18:10 Pulse Oximetry 98 06/14/24 18:10 Oxygen Delivery Room Air 06/14/24 18:10 Temperature 37.4 C 06/14/24 18:10 Pulse Rate 115 H 06/14/24 18:10 Respiratory Rate 20 06/14/24 18:10 Blood Pressure 127/71 06/14/24 18:10 Pulse Oximetry 98 06/14/24 18:10 Oxygen Delivery Room Air 06/14/24 18:10 reviewed MDM - URI/Sore Throat MDM Narrative Medical decision making narrative: Patient is aware of diagnosis, understands and agrees to treatment plan. Anticipatory guidance given. Patient agrees to follow-up as directed and is aware of reasons to seek care at the emergency department. Portions of this record may have been created with voice recognition software influenza test was negative. Patient had negative home COVID test. Recommend patient continue ghli-noi-vurivqi medications to treat viral symptoms. Lungs clear to auscultation, patient nontoxic. Differential Diagnosis Differential diagnosis: Likely upper respiratory infection, viral infection and influenza Lab Data Labs: Lab Results 06/14/24 Range/Units 18:16 POC Influenza A Ag Negative (Negative) POC Influenza B Ag Negative (Negative) Discharge Plan Discharge Clinical Impression: Acute viral syndrome Patient Disposition: Home, Self-Care Condition: Stable Instructions: Viral Syndrome (ED) Additional Instructions: Your influenza test was negative today. Your symptoms are viral and may last 10-14 days. Continue taking hdfn-uzd-etwijal [place] to treat her symptoms. Take ibuprofen every 6-8 hours as needed for pain and fever. Drink at least 64 oz of water a day. Follow-up with your primary care physician if symptoms are not improving. Patient Language: German Prescriptions: No Action Effexor azithromycin 250 mg tablet See Rx Instructions .ROUTE .COMPLEX Qty: 6 0RF Rx Instructions: For 250 mg dose pack: take 500 mg today (day 1), then 250 mg for 4 days (days 2-5) benzonatate 200 mg capsule 200 mg PO TID PRN (Reason: cough) Qty: 20 0RF Follow-up/Referrals: Memo,MD Poly [Primary Care Provider] - Stand Alone Forms: Work/School Release IP Time of Disposition: 18:36
[2024-06-14 18:31] LABS: EDINFLUASCREEN Negative (Negative); EDINFLUBSCREEN Negative (Negative)
== END 2024-06-14 18:47 | disposition home or self-care (01) ==
PROVIDERS: Emergency Provider Nurse Practitioner Family; PCP Internal Medicine
DX: B34.9 Viral infection, unspecified (principal); F17.290 Nicotine dependence, other tobacco product, uncomplicated; Z85.41 Personal history of malignant neoplasm of cervix uteri
CPT/HCPCS: 87804; 99212; G0463

== ENCOUNTER 2025-01-10 08:29 | Emergency (ER) | payer OTHER, SELFPAY ==
--- OUTSIDE RECORDS SUMMARY | 2025-01-10 08:35 | XMS_ITS ---
Author Organization [facility] Address [facility] [place] [address] Care Team Providers Care Endocrinology Nurse Name Role Phone Poly Hampton MD Primary Care Provider [phone] Active Problems Problem Noted Date Diagnosed Date Iron (Fe) deficiency anemia 10/21/2020 Leukopenia due to antineoplastic chemotherapy Iron deficiency anemia 10/20/2020 Encounter for management of peripherally inserted central catheter (PICC) 10/07/2020 Cervix cancer ([facility]) 09/24/2020 Cervical cancer, FIGO stage IIB ([facility] ) 09/03/2020 Current Treatment and Therapy Plans CISplatin Q7D w/RT (max 75 mg)* Plan Start Date:09/22/2020 Plan Provider:Sergio Adame MD Linked Problems Malignant neoplasm of cervix , unspecified site ([facility]) Treatment Medications CISplatin (PLATINOL) chemo infusion (with additi ves) iron sucrose (VENOFER) every 7 days* Plan Start Date:10/22/2020 Plan Provider:Sergio Adame MD Linked Problems Cervical cancer, FIGO stage IIB ([facility])Iron deficiency anemia, unspecified iron deficiency anemia type Treatment Medications No medications scheduled. Other Current Plans Adult Oncology Blank Supportive Template* Plan Start Date:10/07/2020 Plan Provider:Sergio Adame MD Linked Problems Encounter for management of peripherally inserted central catheter (PICC) Treatment Medications No medications scheduled. Past Treatment and Therapy Plans
--- OUTSIDE RECORDS SUMMARY | 2025-01-10 08:35 | XMS_ITS | Clinical Summary ---
Author Organization [facility] Address [address] [place] [address] Phone Care Team Providers Care Aviation Survival Technician Name Role Phone Melissa Christensen MD Unavailable [phone] Robinson Jackson MD PhD Unavailable [phone] Luke Canales MD Unavailable [phone] Fabien Huang MD Unavailable [phone] Andreas Barkley MD Unavailable [phone] Annelise Ardon APRN, CABLE TESTERS HELPER Primary Care Provider Monster Chew MD Unavailable Allergies Active Allergy Reactions Criticality Noted Date Comments Food Unknown 09/29/2020 Sweet tarts Medications citalopram (CeleXA) 20 MG Tablet Take 20 mg by mouth daily. Active ferrous sulfate 325 (65 Fe) MG Tablet Take 1 Tab by mouth daily. 30 Tab 0 Active Additional Information Patient not taking.Reported on 12/10/2024 ibuprofen (MOTRIN) 800 MG Tablet Take 1 Tablet by mouth every 8 hours. 20 Tablet 1 Active Additional Information Patient not taking.Reported on 12/10/2024 HYDROcodone-millie taminophen (NORCO) 5-325 MG TabletIndicatio ns:Open wound of right middle finger due to cat bite Take 1 Tablet by mouth every 8 hours as needed for Moderate or more severe pain. 12 Tablet Active Additional Information Patient not taking.Reported on 12/10/2024 venlafaxine (EFFEXOR) 75 MG Tablet Take 75 mg by mouth daily. Active Active Problems Problem Noted Date Diagnosed Date Cervical cancer, FIGO stage IIB 09/03/2020 Encounters Date Type Department Care Team Description 12/11/2024 Results Follow-Up [facility] Endocrinology [facility] [place] [address] [place] [address] Monster Chew MD THYROID STIMULATING HORMONE (TSH), THYROXINE (T4) FREE, TRIIODOTHYRININE (T3) TOTAL 12/10/2024 2:30 PM CDT Office Visit [facility] [address] [place] [address] Monster Chew MD Subclinical hyperthyroidism (Primary Dx) Discharge Disposition: Discharged to home or Selfcare 12/10/2024 Travel 11/15/2024 9:22 AM CDT - 11/15/2024 10:00 AM CDT Emergency [facility] Emergency [address] [place] [address] Juan J Damon MD Malaise Discharge Disposition: Discharged to home or Selfcare 11/15/2024 Travel 11/04/2024 Transcribe Orders [facility] Central Scheduling [address] [place] [address] Annelise Ardon, COAT JOINER LOCKSTITCH, CABLE TESTERS HELPER Right hip pain (Primary Dx) from Last 3 Months Immunizations Immunization Administration Dates Next Due Covid-19, Mrna, Lnp-s, Pf, 30 Mcg/0.3 Ml Dose (P fizer) 04/28/2021 Influenza, Injectable, Quadrivalent 04/22/2020 TDAP Vaccine 12/25/2023,06/24/2017 Social History Tobacco Use Types Packs/Day Years Used Date Smoking Tobacco: Former Smokeless Tobacco: Never Alcohol Use Standard Drinks/Week Comments Never 0 (1 standard drink = 0.6 oz pur e alcohol) Comments No Sex and Gender Information Value Date Recorded Sex Assigned at Not on file Legal Sex Female 8:32 PM CDT Gender Identity Not on file Sexual Orientation Not on file Last Filed Vital Signs Vital Sign Reading Time Taken Comments Blood Pressure 120/72 12/10/2024 2:36 PM CDT Pulse 97 12/10/2024 2:36 PM CDT Temperature 36.3 C (97.4 F) 12/10/2024 2:36 PM CDT Respiratory Rate 22 12/10/2024 2:36 PM CDT Oxygen Saturation 97% 12/10/2024 2:36 PM CDT Inhaled Oxygen Concentration - - Weight 98.8 kg (217 lb 12.8 oz) 12/10/2024 2:36 PM CDT Height 170.2 cm (5' 7) 11/15/2024 9:25 AM CDT Body Mass Index 34.11 11/15/2024 9:25 AM CDT Plan of Treatment Upcoming Encounters Date Type Department Care Team (Late st Contact Info) Description 03/12/2025 2:30 PM CDT Office Visit [facility] - [place] [address] [place] [address] Monster Chew MD [address] [address] Health Maintenance Due Date Last Done Comments Hepatitis C Virus (HCV) Screening 1987 Hepatitis B Immunization (1 of 3 - 19+ 3-dose series) 2006 Pneumococcal Immunization Combined (1 of 2 - PCV) 2006 SARS-COV-2 Immunization (3 - Pfizer risk series) 05/27/2021 04/29/2021, 04/28/2021, 06/26/2020 Influenza Immunization (#1) 2025 04/22/2020 Td Immunization Every 10 Yea rs (Adults With 1 Tdap) 12/24/2033 12/25/2023, 06/24/2017 Respiratory Syncytial Virus (RSV) Immunization (Adult) (1 - 1-dose 75+ series) 2062 DTaP/Tdap/Td Immunization Discontinued 2023, 06/24/2017 TdaP Immunization Discontinued 12/25/2023, 06/24/2017 Human Papillomavirus (HPV) Immunization Aged Out No longer eligible based on patient's age to complete this topic Meningococcal Immunization (ACWY) Aged Out No longer eligible based on patient's age to complete this topic Rotavirus Immunization Aged Out No lo nger eligible based on patient's age to complete this topic Procedures Procedure Name Priority Date/Time Associated Diagnosis Comments THYROXINE (T4) FREE Routine 12/10/2024 4 :13 PM CDT Subclinical hyperthyroidism THYROID STIMULATING HORMONE (TSH) Routine 12/10/2024 4:13 PM CDT Subclinical hyperthyroidism TRIIODOTHYRININE (T3) TOTAL Routine 12/10/2024 3:25 PM CDT Subclinical hyperthyroidism EKG 12 LEAD STAT 11/15/2024 9:31 AM CDT CARDIAC TEST GENERIC 11/15/2024 12:00 AM CDT from Last 3 Months Results * THYROXINE (T4) FREE (12/10/2024 4:13 PM CDT) T4 FREE 0.8 0.7 - 1.9 ng/dL 12/10/2024 5:03 PM CDT [facility] Blood Venipuncture / Unknown 12/10/2024 4:13 PM CDT 12/10/2024 4:13 PM CDT us Monster Chew MD CHEMISTRY ORDERABLES Final Resul t [facility] [address] [place] [address] * THYROID STIMULATING HORMONE (TSH) (12/10/2024 4:13 PM CDT) TSH 0.522 0.300 - 5.000 mIU/L 12/10/2024 5:03 PM CDT [facility] Blood Venipuncture / Unknown 12/10/2024 4:13 PM CDT 12/10/2024 4:13 PM CDT us Monster Chew MD CHEMISTRY ORDERABLES Final Resul t Performing Organization Address City/[facility]/ZIP Co de Phone Number [facility] [address] [place] [address] * TRIIODOTHYRININE (T3) TOTAL (12/10/2024 3:25 PM CDT) T3 124 40 - 193 ng/dL 12/11/2024 12:13 AM CDT [facility] Blood Venipuncture / Unknown 12/10/2024 3:25 PM CDT 12/10/2024 4:13 PM CDT us Monster Chew MD CHEMISTRY ORDERABLES Final Resul t Performing Organization Address City/[facility] Co de Phone Number [facility] [address] [place] [address], [place] * EKG 12 LEAD (11/15/2024 9:31 AM CDT) Ventricular Rate 86 BPM EXTERNAL EKG Atrial Rate 86 BPM EXTERNAL EKG P-R Interval 126 ms EXTERNAL EKG QRS Duration 90 ms EXTERNAL EKG Q-T Duration 386 ms EXTERNAL EKG QTC CALCULATION 461 ms EXTERNAL EKG P [place] 46 degrees EXTERNAL EKG R [place] 50 degrees EXTERNAL EKG T [place] 49 degrees EXTERNAL EKG 11/15/2024 9:31 AM CDT Impressions EXTERNAL EKG - 11/17/2024 10:54 PM CDT Normal sinus rhythm Normal ECG No previous ECGs available Confirmed by Surekha Good ([id number]) on 11/17/2024 10:54:20 PM Narrative Procedure Note Surekha Good DO - 11/17/2024 IMPRESSION: Normal sinus rhythm Normal ECG No previous ECGs available Confirmed by Surekha Good ([id number]) on 11/17/2024 10:54:20 PM Juan J Damon MD IMG ECG ORDERABLES Final Result EXTERNAL EKG * CARDIAC TEST GENERIC (11/15/2024 12:00 AM CDT) Anatomical Region Laterality Modality Other 11/15/2024 us Provider Scan CV PROCEDURES SCHED Final Result from Last 3 Months Insurance Care Teams Aviation Survival Technician Relationship Specialty Start Date End Date Annelise Ardon, COAT JOINER LOCKSTITCH, CABLE TESTERS HELPER [address] [place] [id number] PCP - General Advanced Practice Nurse 10/07/24 Melissa Christensen MD [address] [place], [place] [id number] Consulting Physician Radiation Oncology 09/03/20 Robinson Jackson MD PhD [address] [place] [address] [id number] Consulting Physician Gynecologic Oncology 09/03/20 Luke Canales MD [address] [place] [address] Consulting Physician Obstetrics & Gynecology 09/03/20 Fabien Huang MD [address] [place], [place] [id number] Consulting Physician Radiation Oncology 09/03/20 Andreas Barkley MD [address] [place] [address] Consulting Physician Medical Oncology 09/03/20 Monster Chew MD [address] [address] Consulting Physician Endocrinology 11/28/24
--- OUTSIDE RECORDS SUMMARY | 2025-01-10 08:35 | XMS_ITS | Clinical Summary ---
Author Organization [facility] Address [address] [place] [address] Care Team Providers Care Director Fixed Income Name Role Phone Poly Hampton MD Primary Care Provider [phone] Allergies Active Allergy Reactions Criticality Noted Date Comments Food Unknown 09/29/2020 Sweet tarts Medications ibuprofen 600 MG tablet Take 600 mg by mouth 4 (four) times daily. 08/24/2020 Active ferrous sulfate, 65 mg elemental, 325 (65 FE) MG tablet Take 325 mg by mouth daily. 05/23/2020 Active citalopram 20 MG tablet Take 10 mg by mouth daily. Active busPIRone 10 MG tablet Take 10 mg by mouth 2 (two) times daily as needed. 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 Iron deficiency anemia 10/20/2020 Encounter for management of peripherally inserted central catheter (PICC) 10/07/2020 Cervix cancer ([facility]) 09/24/2020 Cervical cancer, FIGO stage IIB ([facility] ) 09/03/2020 Family History Medical History Relation Comments Diabetes Maternal Grandfather Early Maternal Grandfather Prostate Cancer Paternal Grandfather Diabetes Paternal Grandmother Early Paternal Grandmother Relation Status Comments Maternal Grandfather Paternal Grandfather Paternal Grandmother Social History Tobacco Use Types Packs/Day Years Used Date Smoking Tobacco: Every Day Electronic Cigarettes Smokeless Tobacco: Never Tobacco Cessation:Ready to Q uit: No; Counseling Given: No Comments No Sex and Gender Information Value Date Recorded Sex Assigned at Not on file Legal Sex Female 11:56 AM CDT Gender Identity Not on file Sexual Orientation Not on file Last Filed Vital Signs Vital Sign Reading Time Taken Comments Blood Pressure 111/69 12/15/2020 10:30 AM CDT Pulse 81 12/15/2020 10:30 AM CDT Temperature 36.9 C (98.4 F) 12/15/2020 10:30 AM CDT Respiratory Rate 18 12/15/2020 10:30 AM CDT Oxygen Saturation 100% 12/15/2020 10:30 AM CDT Inhaled Oxygen Concentration - - Weight 99.1 kg (218 lb 6.4 oz) 12/15/2020 10:30 AM CDT Height 171.5 cm (5' 7.52) 09/29/2020 12:32 PM C DT Body Mass Index 33.68 09/29/2020 12:32 PM CDT Plan of Treatment Health Maintenance Due Date Last Done Comments Cervical Cancer Screening Pa p Smear (Age 30 to 64) Every 3 Years 1987 Annual Physical 1990 Hepatitis C 2005 DTaP, Tdap and Td Vaccines ( 1 - Tdap) 2006 Hepatitis B Vaccines (1 of 3 - 19+ 3-dose series) 2006 Pneumococcal Vaccine: Pediat rics (0 to 5 Years) and At-Risk Patients (6 to 49 Years) (1 of 2 - PCV) 2006 HPV Vaccines (1 - 3-dose SCD M series) 2014 Cervical Cancer Screening Pa p with HPV Testing (Age 30 to 64) Every 5 Years 2017 Cervical Cancer Screening with HPV 2017 COVID-19 Vaccine (2 - 2023-2 5 season) 2024 06/26/2020 Meningococcal B Vaccine Aged Out No l onger eligible based on patient's age to complete this topic Meningococcal Vaccine Aged Out No celina randell eligible based on patient's age to complete this topic RSV Immunizations Under 20 Months Aged Out No longer eligible based on patient's age to complete this topic Insurance [facility] [employer] [id number] Care Teams Director Fixed Income Relationship Specialty Start Date End Date Poly Hampton MD PCP - General INTERNAL MEDICINE 09/22/20
--- OUTSIDE RECORDS SUMMARY | 2025-01-10 08:35 | XMS_ITS | Encounter Summary ---
Author Organization [facility] Address [address] [place] [address] Care Team Providers Care Programming Internship Name Role Phone Poly Hampton MD Primary Care Provider [phone] Encounter Details Date Type Department Care Team (Late st Contact Info) Description 10/01/2020 Hospital Orders Only [email or web address] [place] [address] John Rodriguez MD [facility] [place] [address] Social History Tobacco Use Types Packs/Day Years Used Date Smoking Tobacco: Every Day Electronic Cigarettes Comments No Sex and Gender Information Value Date Recorded Sex Assigned at Not on file Legal Sex Female 11:56 AM CDT Gender Identity Not on file Sexual Orientation Not on file COVID-19 Exposure Response Date Recorded In the last month, have you been in contact with someone who was confirmed or suspected to have Coronavirus / COVID-19? No / Unsure 10/04/2020 6:52 AM CDT documented as of this encounter Plan of Treatment Not on file documented as of this encounter Visit Diagnoses Not on filedocumented in this encounter Additional Health Concerns Infection Onset Date Last Indicated Resolved Time COVID-19 Rule Out 10/01/2020 10/01/2020 10/02/2020 2:41 PM CDT documented as of this encounter Care Teams Programming Internship Relationship Specialty Start Date End Date Poly Hampton MD PCP - General INTERNAL MEDICINE 09/22/20 documented as of this encounter
--- OUTSIDE RECORDS SUMMARY | 2025-01-10 08:35 | XMS_ITS | Encounter Summary ---
Author Organization [facility] Address [address] [place] [address] Care Team Providers Care Human Resources Trainee Name Role Phone Poly Hampton MD Primary Care Provider [phone] Encounter Details Date Type Department Care Team (Late st Contact Info) Description 10/07/2020 Hospital Orders Only [facility] [address] [facility] [place] [address] Elif Tirado RN Social History Tobacco Use Types Packs/Day Years [...] have Coronavirus / COVID-19? No / Unsure 10/08/2020 10:37 AM CDT documented as of this encounter Plan of Treatment Not on file documented as of this encounter Visit Diagnoses Not on filedocumented in this encounter Care Teams Human Resources Trainee Relationship Specialty Start Date End Date Poly Hampton MD PCP - General INTERNAL MEDICINE 09/22/20 documented as of this encounter
[2025-01-10 08:42] VITALS: BP 115/78; PULSE 103; RESP 20; TEMP 36.8; O2SAT 99
--- NOTE | 2025-01-10 08:42 | ED.NAVMDI ---
HPI - Nausea/Vomiting/Diarrhea General Chief complaint: Nausea/Vomiting/Diarrhea Stated complaint: nausea/vomiting Patient presents to [facility] with complaints upper abdominal cramping, nausea, and vomiting that began 3-4 days ago. Patient reports using juvenal sinai, Pepto-Bismol, and liquid diet with minimal relief of symptoms. Patient noted about 1 hour after eating and drinking usually has vomiting. Patient does report daughter started with similar symptoms today. Patient usually works weekends and was unable to go to work today prompting her visit. Denies fever, chills, body aches, diarrhea, constipation, significant abdominal pain, dizziness, headaches, or cold-like symptoms. Related Data Home Medications ?Medication ?Instructions ?Recorded ?Confirmed ?Last Taken ?Type Effexor 04/11/24 Unknown History Allergies Allergy/AdvReac Type Severity Reaction Status Date / Time No Known Allergies Allergy Verified 01/10/25 08:47 Review of Systems Constitutional: Constitutional: Reports as per HPI, Denies chills, Reports fatigue, Denies fever(s) and Reports weakness Eyes: Eyes: Reports no additional eye complaints ENT: Reports as per HPI, Denies vertigo, Denies dizziness, Denies nasal congestion and Denies sore throat Cardiovascular: Cardiovascular: Reports no additional cardiovascular complaints Respiratory: Respiratory: Reports no additional respiratory complaints Gastrointestinal: Gastrointestinal: Reports as per HPI, Reports abdominal pain, Denies bloating, Denies constipation, Denies heartburn, Denies diarrhea, Reports nausea and Reports vomiting Genitourinary: Genitourinary: Reports no additional female genitourinary complaints Musculoskeletal: Musculoskeletal: Reports no additional musculoskeletal complaints Neurologic: Reports as per HPI, Denies vertigo, Denies dizziness, Denies numbness and Denies weakness Psychiatric: Psychiatric: Reports no additional psychiatric complaints Endocrine: Endocrine: Reports no additional endocrine complaints Hematologic/Lymphatic: Hematologic/Lymphatic: Reports no additional hematologic/lymphatic complaints Allergic/Immunologic: Allergic/Immunologic: Reports no additional allergic/immunologic complaints [facility] Past Medical History Medical History History of cervical cancer Tobacco use Surgical History Surgical History No pertinent past surgical history Family History Family History Father Hypertension Heart disease Social History Social History (Reviewed 10/12/23 @ 19:03 by SAMANTA Kahn Smoking status: Current every day smoker Tobacco type: e-cigarettes/vaping Substance use: never Living arrangements: with family Gender identity (if verbalized by the patient): Female Sexual Orientation (if Verbalized by the Patient): Straight or Heterosexual Spiritual care concerns: No Exam Const: General: no acute distress, alert and ill appearing Nutritional Appearance: well nourished Orientation/consciousness: patient oriented x3 Limitations: no limitations Other: Obviously fatigued Neck: Neck: no lymphadenopathy Resp: Effort & Inspection: normal respiratory effort Auscultation: clear to auscultation bilaterally Cardio: Rate: regular rate Rhythm: regular rhythm GI: GI Palp: Yes Soft to palpation, Yes Tenderness to palpation present (GI) ( epigastric minimal), No Guarding due to palpation present (GI), No Rigid due to palpation, No Hernia present and No Rebound tenderness present Auscultation: normal bowel sounds Skin: General skin exam: normal color Rashes: no rashes Wounds: no wounds Neuro: General: patient oriented x3 Speech: normal speech Gait exam (Neuro): Normal gait present Psych: Mental Status: mental status grossly normal Affect: normal affect Attitude: cooperative Course Course Level of Care: Express Care Visit MDM - Nausea/Vomiting/Diarrhea MDM Narrative Medical decision making narrative: no significant abdominal tenderness or diarrhea. Likely viral in nature. Continue supportive care Discharge instructions reviewed with patient, as well as provided in writing per nursing staff. The instructions also include specific and strict return/GO TO THE ER as well as f/u information. All questions have been answered, and the patient deny any further questions with discharge and discharge plan. Differential Diagnosis Differential diagnosis: Likely traveler's diarrhea, food poisoning and gastroenteritis Medical Records Attestation: I reviewed the patient's medical records. Discharge Plan Discharge Clinical Impression: Nausea & vomiting Patient Disposition: Home Condition: Stable Instructions: Antibiotic Form, Gastroenteritis (ED), Acute Nausea and Vomiting (ED) Additional Instructions: start with a clear liquid diet then slowly progress if you have no vomiting. Take Pepcid 20 mg every 6 hours to help lower stomach acid and help with abdominal pain. May use the Zofran as needed if you begin has significant abdominal pain, fever, or unable to keep any food or drink down after 2 more days go to the emergency room for further evaluation. Patient Language: Indonesian Prescriptions: New ondansetron 4 mg tablet,disintegrating 4 mg PO Q8H PRN (Reason: nausea and vomiting) Qty: 20 0RF No Action Effexor azithromycin 250 mg tablet See Rx Instructions .ROUTE .COMPLEX Qty: 6 0RF Rx Instructions: For 250 mg dose pack: take 500 mg today (day 1), then 250 mg for 4 days (days 2-5) benzonatate 200 mg capsule 200 mg PO TID PRN (Reason: cough) Qty: 20 0RF Follow-up/Referrals: UNKNOWN,DOCTOR [Primary Care Provider] - Stand Alone Forms: Work/School Release IP Time of Disposition: 08:58
== END 2025-01-10 09:03 | disposition home or self-care (01) ==
PROVIDERS: Emergency Provider Nurse Practitioner Family
DX: R11.2 Nausea with vomiting, unspecified (principal); F17.290 Nicotine dependence, other tobacco product, uncomplicated; Z85.41 Personal history of malignant neoplasm of cervix uteri
CPT/HCPCS: 99213; G0463

== ENCOUNTER 2025-01-30 12:38 | Emergency (ER) | payer OTHER, SELFPAY ==
--- OUTSIDE RECORDS SUMMARY | 2025-01-30 12:41 | XMS_ITS | Encounter Summary ---
Author Organization [facility] Address [address] [place] [address] Care Team Providers Care Production Underwriter Name Role Phone Poly Hampton MD Primary Care Provider [phone] Encounter Details Date Type Department Care Team (Late st Contact Info) Description 10/07/2020 Hospital Orders Only [facility] [address] [facility] [place] [address] Elif Tirado RN Social History Tobacco Use [...] on filedocumented in this encounter Care Teams Production Underwriter Relationship Specialty Start Date End Date Poly Hampton MD PCP - General INTERNAL MEDICINE 09/22/20 documented as of this encounter
--- OUTSIDE RECORDS SUMMARY | 2025-01-30 12:41 | XMS_ITS | Encounter Summary ---
Author Organization [facility] Address [address] [place] [address] Care Team Providers Care Inside Sales Supervisor Name Role Phone Poly Hampton MD Primary Care Provider [phone] Encounter Details Date Type Department Care Team (Late st Contact Info) Description 10/01/2020 Hospital Orders Only [facility] [place] [place] [address] John Rodriguez MD [facility] [place] [address] Social History Tobacco Use Types [...] documented as of this encounter Care Teams Inside Sales Supervisor Relationship Specialty Start Date End Date Poly Hampton MD PCP - General INTERNAL MEDICINE 09/22/20 documented as of this encounter
--- OUTSIDE RECORDS SUMMARY | 2025-01-30 12:41 | XMS_ITS | Clinical Summary ---
Author Organization [facility] Address [address] [place] [address] Phone Care Team Providers Care Board Certified Family Physician Name Role Phone Melissa Christensen MD Unavailable [phone] Robinson Jackson MD PhD Unavailable [phone] Luke Canales MD Unavailable [phone] Fabien Huang MD Unavailable [phone] Andreas Barkley MD Unavailable [phone] Annelise Ardon APRN, [facility] Primary Care Provider Monster Chew MD Unavailable Allergies Active Allergy Reactions Criticality Noted Date Comments Food Unknown 09/29/2020 Sweet tarts Medications venlafaxine (EFFEXOR) 75 MG Tablet Take 75 mg by mouth daily. Active citalopram (CeleXA) 20 MG Tablet Take 20 mg by mouth daily. 01/12/20 25 Discontinue d(Med List Clean Up) ferrous sulfate 325 (65 Fe) MG Tablet Take 1 Tab by mouth daily. 30 Tab 0 01/12/20 25 Discontinue d(Med List Clean Up) ibuprofen (MOTRIN) 800 MG Tablet Take 1 Tablet by mouth every 8 hours. 20 Tablet 1 01/12/20 25 Discontinue d(Med List Clean Up) HYDROcodone-ac etaminophen (NORCO) 5-325 MG TabletIndicati ons:Open wound of right middle finger due to cat bite Take 1 Tablet by mouth every 8 hours as needed for Moderate or more severe pain. 12 Tablet 4 01/12/20 25 Discontinue d(Med List Clean Up) ciprofloxacin (CIPRO) 500 MG TabletIndicati ons:Urinary Tract Infection Take 1 Tablet by mouth 2 times daily for 7 days. Indications: Urinary Tract Infection 14 Tablet 5 01/19/20 25 Active Problems Problem Noted Date Diagnosed Date Cervical cancer, FIGO stage IIB 09/03/2020 Encounters Date Type Department Care Team Description 01/10/2025 8:46 PM CDT - 01/11/2025 12:43 AM CDT Emergency [facility] Emergency [address] [place] [address] Pankaj Wilson MD Acute cystitis Discharge Disposition: Discharged to home or Selfcare 01/10/2025 Travel 12/11/2024 Results Follow-Up [facility] Endocrinology [facility] [address] [place] [address] Monster Chew MD THYROID STIMULATING HORMONE (TSH), THYROXINE (T4) FREE, TRIIODOTHYRININE (T3) TOTAL 12/10/2024 2:30 PM CDT Office Visit [facility] Endocrinology [facility] [address] [place] [address] Monster Chew MD Subclinical hyperthyroidism (Primary Dx) Discharge Disposition: Discharged to home or Selfcare 12/10/2024 Travel 11/15/2024 9:22 AM CDT - 11/15/2024 10:00 AM CDT Emergency [facility] Emergency [address] [place] [address] Juan J Damon MD Malaise Discharge Disposition: Discharged to home or Selfcare 11/15/2024 Travel 11/04/2024 Transcribe Orders [facility] Central Scheduling [address] [facility] [place] [phone] Annelise Ardon M, SNELLER HAND, SHREDDED FILLER CUTTER OPERATOR Right hip pain (Primary Dx) from Last [...] Sign Reading Time Taken Comments Blood Pressure 142/78 01/11/2025 12:41 AM CDT Pulse 84 01/11/2025 12:41 AM CDT Temperature 37.1 C (98.8 F) 01/11/2025 12:41 AM CDT Respiratory Rate 16 01/11/2025 12:41 AM CDT Oxygen Saturation 100% 01/11/2025 12:41 AM CDT Inhaled Oxygen Concentration - - Weight 100 kg (220 lb 7.4 oz) 01/10/2025 8:52 PM CDT Height 167.6 cm (5' 6) 01/10/2025 8:52 PM CDT Body Mass Index 35.58 01/10/2025 8:52 PM CDT Plan of Treatment Upcoming Encounters Date Type Department Care Team (Late st Contact Info) Description 03/12/2025 2:30 PM CDT Office Visit [facility] - Endocrinology - [place] [address] [place] [address] Monster Chew MD [address] [phone] Health Maintenance Due Date Last Done Comments Hepatitis C Virus (HCV) Screening 1987 Hepatitis B Immunization (1 of 3 - 19+ 3-dose series) 2006 Pneumococcal Immunization Combined (1 of 2 - PCV) 2006 Human Papillomavirus (HPV) Immunization (1 - Risk 3-dose SCDM series) 2014 SARS-COV-2 Immunization (3 - Pfizer risk series) 05/27/2021 04/29/2021, 04/28/2021, 06/26/2020 Influenza Immunization (#1) 2025 04/22/2020 Td Immunization Every 10 Yea rs (Adults With 1 Tdap) 12/24/2033 12/25/2023, 06/24/2017 Respiratory Syncytial Virus (RSV) Immunization (Adult) (1 - 1-dose 75+ series) 2062 DTaP/Tdap/Td Immunization Discontinued 2023, 06/24/2017 TdaP Immunization Discontinued 12/25/2023, 06/24/2017 Meningococcal Immunization (ACWY) Aged Out No longer eligible based on patient's age to complete this topic Rotavirus Immunization Aged Out No lo nger eligible based on patient's age to complete this topic Procedures Procedure Name Priority Date/Time Associated Diagnosis Comments CT ABDOMEN PELVIS W/ CONTRAST Stat with Interpretation 01/10/2025 11:31 PM CDT URINALYSIS REFLEX IF INDICATED BY ABNORMAL RESULTS STAT 01/10/2025 9:59 PM CDT CULTURE, URINE STAT 01/10/2025 9:59 PM CDT CBC WITH AUTO DIFFERENTIAL STAT 01/10/2025 9:54 PM CDT LIPASE STAT 01/10/2025 9:54 PM CDT COMPLETE BLOOD COUNT (CBC) WITH DIFF STAT 01/10/2025 9:54 PM CDT CMP (COMPREHENSIVE METABOLIC PANEL) STAT 01/10/2025 9:54 PM CDT THYROXINE (T4) FREE Routine 12/10/2024 4:13 PM CDT Subclinical hyperthyroidism THYROID STIMULATING HORMONE (TSH) Routine 12/10/2024 4:13 PM CDT Subclinical hyperthyroidism TRIIODOTHYRININE (T3) TOTAL Routine 12/10/2024 3:25 PM CDT Subclinical hyperthyroidism EKG 12 LEAD STAT 11/15/2024 9:31 AM CDT CARDIAC TEST GENERIC 11/15/2024 12:00 AM CDT from Last 3 Months Results * CT ABDOMEN PELVIS W/ CONTRAST (01/10/2025 11:31 PM CDT) Anatomical Region Laterality Modality Abdomen N/A Computed Tomogra phy 01/11/2025 12:0 6 AM CDT Impressions 01/11/2025 12:09 AM CDT IMPRESSION: 1. Diffuse thickening of the wall of the urinary bladder with stranding in the perivesical fat suggesting cystitis. Recommend correlation with clinical and laboratory findings. 2. 2 mm nonobstructing stone left kidney. Narrative 01/11/2025 12:09 AM CDT EXAM DESCRIPTION: CT ABDOMEN PELVIS W/ CONTRAST REASON FOR STUDY: c/o nausea vomiting x 3 days, which stopped today. Abdominal bloating , bladder pain and fever today. Constipation x 3 days. HX: Anxiety, Cervical cancer TECHNIQUE: CT scan of the abdomen and pelvis performed with intravenous and without oral contrast using helical scanning technique with dynamic intravenous contrast injection. Reconstructed coronal and sagittal MPR images reviewed. All images stored on PACS. Automated exposure control was used as a dose optimization technique for this examination. CONTRAST TYPE/DOSE: 100mL of IOPAMIDOL 76 % IV SOLN injected via Intravenous COMPARISON: 08/05/2020 FINDINGS: LOWER CHEST: No significant pulmonary abnormalities. No effusion. LIVER: Normal size. No identified cystic or solid masses. GALLBLADDER: No stones identified. No wall thickening or inflammatory changes. BILE DUCTS: No intrahepatic or extrahepatic ductal dilatation. SPLEEN: Normal size. No focal lesions. PANCREAS: No identified cystic or solid masses. No significant calcifications. No adjacent inflammation or peripancreatic fluid collections. Pancreatic duct not dilated. ADRENALS: Normal. KIDNEYS/URINARY TRACT: No identified significant cystic or solid masses. 2 mm nonobstructing stone left kidney. No obstructing renal or ureteral calculus. No hydronephrosis or hydroureter. Symmetric enhancement. Diffuse thickening of the wall of the urinary bladder with stranding in the perivesical fat suggesting cystitis. Recommend correlation with clinical and laboratory findings. GI: No dilated bowel loops. No obvious wall thickening. Appendix is not visualized. No significant diverticular disease. PERITONEUM: No ascites or free air. RETROPERITONEUM: No mass or adenopathy. REPRODUCTIVE: No significant abnormality. VASCULATURE: No abdominal aortic aneurysm. MUSCULOSKELETAL: No significant abnormality. OTHER: No other abnormality. THIS IS AN ELECTRONICALLY VERIFIED FINAL REPORT 01/11/2025 12:06 AM - Electronically signed by Jose Alfredo Fry M.D. KT: ROMAN Report ID: [id number] Reading Location: [place] [address] Procedure Note Jose Alfredo Fry MD - 01/11/2025 EXAM DESCRIPTION: CT ABDOMEN PELVIS W/ CONTRAST REASON FOR STUDY: c/o nausea vomiting x 3 days, which stopped today. Abdominal bloating , bladder pain and fever today. Constipation x 3 days. HX: Anxiety, Cervical cancer TECHNIQUE: CT scan of the abdomen and pelvis performed with intravenous and without oral contrast using helical scanning technique with dynamic intravenous contrast injection. Reconstructed coronal and sagittal MPR images reviewed. All images stored on PACS. Automated exposure control was used as a dose optimization technique for this examination. CONTRAST TYPE/DOSE: 100mL of IOPAMIDOL 76 % IV SOLN injected via Intravenous COMPARISON: 08/05/2020 FINDINGS: LOWER CHEST: No significant pulmonary abnormalities. No effusion. LIVER: Normal size. No identified cystic or solid masses. GALLBLADDER: No stones identified. No wall thickening or inflammatory changes. BILE DUCTS: No intrahepatic or extrahepatic ductal dilatation. SPLEEN: Normal size. No focal lesions. PANCREAS: No identified cystic or solid masses. No significant calcifications. No adjacent inflammation or peripancreatic fluid collections. Pancreatic duct not dilated. ADRENALS: Normal. KIDNEYS/URINARY TRACT: No identified significant cystic or solid masses. 2 mm nonobstructing stone left kidney. No obstructing renal or ureteral calculus. No hydronephrosis or hydroureter. Symmetric enhancement. Diffuse thickening of the wall of the urinary bladder with stranding in the perivesical fat suggesting cystitis. Recommend correlation with clinical and laboratory findings. GI: No dilated bowel loops. No obvious wall thickening. Appendix is not visualized. No significant diverticular disease. PERITONEUM: No ascites or free air. RETROPERITONEUM: No mass or adenopathy. REPRODUCTIVE: No significant abnormality. VASCULATURE: No abdominal aortic aneurysm. MUSCULOSKELETAL: No significant abnormality. OTHER: No other abnormality. THIS IS AN ELECTRONICALLY VERIFIED FINAL REPORT 01/11/2025 12:06 AM - Electronically signed by Jose Alfredo Fry M.D. KT: ROMAN Report ID: [id number] Reading Location: [id number] IMPRESSION: 1. Diffuse thickening of the wall of the urinary bladder with stranding in the perivesical fat suggesting cystitis. Recommend correlation with clinical and laboratory findings. 2. 2 mm nonobstructing stone left kidney. Pankaj Wilson MD IMG CT ORDERABLES Final R esult * (ABNORMAL) URINALYSIS REFLEX IF INDICATED BY ABNORMAL RESULTS (01/10/2025 9:59 PM CDT) SPECIFIC GRAVITY 1.010 1.003 - 1.030 01/10/2025 10:53 PM CDT [facility] URINE PH 6.0 5.0 - 9.0 01/10/2025 10:53 PM CDT [facility] WBC ESTERASE 100 /uL(A) Negative 01/10/2025 10:53 PM CDT [facility] NITRITE Negative Negative 01/10/2025 10:53 PM CDT [facility] PROTEIN, RANDOM URINE 15 mg/dL(A) Negative 01/10/2025 10:53 PM CDT [facility] URINE GLUCOSE, QUAL Negative Negative 01/10/2025 10:53 PM CDT [facility] URINE KETONES Negative Negative 01/10/2025 10:53 PM CDT [facility] UROBILINOGEN Normal Normal mg/dL 01/10/2025 10:53 PM CDT [facility] URINE BLOOD 150 /uL(A) Negative marianela/ul 01/10/2025 10:53 PM CDT [facility] URINALYSIS COLOR Yellow 01/11/20 10:53 PM CDT [facility] URINALYSIS CLARITY Clear 01/10/2025 10:53 PM CDT [facility] WBC (Urine) 6-10(A) Negative, 0-5 /hpf 01/10/2025 10:53 PM CDT [facility] URINE RBC'S 6-10(A) Negative, 0-2 /hpf 01/10/2025 10:53 PM CDT [facility] EPITHELIAL CELLS Small amount /lpf 2024 10:53 PM CDT [facility] BACTERIA, URINE Few(A) Negative /hpf 01/10/2025 10:53 PM CDT [facility] Urine URINE SPECIMEN OBTAINED BY CLEAN CATCH PROCEDURE / Unknown Non-Phlebotomy Collection / Unknown 01/10/2025 9:59 PM CDT 01/10/2025 10:07 PM CDT Pankaj Wilson MD URINE ORDERABLES Final Re sult Performing Organization Address City/[facility]/ZIP Co de Phone Number [facility] [address] [place] [address] * CULTURE, URINE (01/10/2025 9:59 PM CDT) CULTURE RESULTS GROUP B STREPTOCOCCUS 01/12/2025 3:42 PM CDT [facility] Comment:DRUG OF CHOICE IS AM PICILLIN OR PENICILLIN Urine URINE SPECIMEN OBTAINED BY CLEAN CATCH PROCEDURE / Unknown Non-Phlebotomy Collection / Unknown 01/10/2025 9:59 PM CDT 01/10/2025 10:07 PM CDT Pankaj Wilson MD MICROBIOLOGY - GENERAL OR DERABLES Final Result [facility] [address] [place] [address], * (ABNORMAL) CBC WITH AUTO DIFFERENTIAL (01/10/2025 9:54 PM CDT) WBC 6.45 4.00 - 12.00 10(3)/[facility] 01/10/2025 10:13 PM CDT [facility] RBC 4.28 3.80 - 5.30 10(6)/[facility] 01/10/2025 10:13 PM CDT [facility] HEMOGLOBIN (HGB) 12.3 12.0 - 15.8 g/dL 01/10/2025 10:13 PM CDT [facility] HEMATOCRIT (HCT) 35.7(L) 36.0 - 47.0 % 01/10/2025 10:13 PM CDT [facility] MCV 83.4 82.0 - 96.0 fL 01/10/2025 10:13 PM CDT [facility] MCH 28.7 26.0 - 34.0 pg 01/10/2025 10:13 PM CDT [facility] MCHC 34.5 31.0 - 36.0 g/dL 01/10/2025 10:13 PM CDT [facility] PLATELET COUNT 241 140 - 440 10(3)/[facility] 01/10/2025 10:13 PM CDT [facility] RDW 12.2 11.8 - 15.5 % 01/10/2025 10:13 PM CDT [facility] MPV 8.6(L) 9.7 - 12.4 fL 01/10/2025 10:13 PM CDT [facility] NEUTROPHILS 79.6(H) 47.0 - 73.0 % 01/10/2025 10:13 PM CDT [facility] LYMPHOCYTES 11.9(L) 18.0 - 42.0 % 01/10/2025 10:13 PM CDT [facility] MONOCYTES 7.0 4.0 - 12.0 % 01/10/2025 10:13 PM CDT [facility] EOSINOPHILS 0.9 0.0 - 5.0 % 01/10/2025 10:13 PM CDT [facility] BASOPHILS 0.3 0.0 - 1.0 % 01/10/2025 10:13 PM CDT [facility] IMMATURE GRANULOCYTE 0.3 0.0 - 0.4 % 01/10/2025 10:13 PM CDT [facility] Comment:Immature Granulocyte s includes Metamyelocytes, Myelocytes, and Promyelocytes. ABSOLUTE NEUTROPHILS 5.13 1.60 - 7.70 10(3)/[facility] 01/10/2025 10:13 PM CDT [facility] ABSOLUTE LYMPHOCYTES 0.77(L) 1.30 - 3.20 10(3)/[facility] 01/10/2025 10:13 PM CDT [facility] ABSOLUTE MONOCYTES 0.45 0.20 - 1.00 10(3)/[facility] 01/10/2025 10:13 PM CDT [facility] ABSOLUTE EOSINOPHIL 0.06 0.00 - 0.40 10(3)/[facility] 01/10/2025 10:13 PM CDT [facility] ABSOLUTE BASOPHILS 0.02 0.00 - 0.10 10(3)/[facility] 01/10/2025 10:13 PM CDT [facility] ABSOLUTE IMMATURE GRANULOCYTE 0.02 0.00 - 0.03 10 (3) mcL. 01/10/2025 10:13 PM CDT [facility] NRBC PER 100 WBC 0 01/11/20 10:13 PM CDT [facility] Blood Venipuncture / Unknown 01/10/2025 9:54 PM CDT 01/10/2025 10:08 PM CDT us Pankaj Wilson MD HEMATOLOGY ORDERABLES Fin al Result [facility] [address] [place] [address] * LIPASE (01/10/2025 9:54 PM CDT) LIPASE 24 8 - 78 U/L 01/10/2025 10:35 PM CDT [facility] Blood Venipuncture / Unknown 01/10/2025 9:54 PM CDT 01/10/2025 10:08 PM CDT us Pankaj Wilson MD CHEMISTRY ORDERABLES Renay l Result [facility] [address] [place] [address] * (ABNORMAL) CMP (COMPREHENSIVE METABOLIC PANEL) (01/10/2025 9:54 PM CDT) Pathologist [facility] SODIUM 136 136 - 145 mmol/L 01/10/2025 10:35 PM CDT [facility] POTASSIUM 4.1 3.5 - 5.1 mmol/L 01/10/2025 10:35 PM CDT [facility] CHLORIDE 100 98 - 107 mmol/L 01/10/2025 10:35 PM CDT [facility] CO2, VENOUS 27 22 - 30 mmol/L 01/10/2025 10:35 PM CDT [facility] ANION GAP 13.1 <18.0 mmol/L 01/10/2025 10:35 PM CDT [facility] GLUCOSE 111(H) 70 - 99 mg/dL 01/10/2025 10:35 PM CDT [facility] BUN 8 5 - 18 mg/dL 01/10/2025 10:35 PM CDT [facility] CREATININE, BLOOD 0.56(L) 0.60 - 1.00 mg/dL 01/10/2025 10:35 PM CDT [facility] BUN/CREATININE RATIO 14 12 - 20 ratio 01/10/2025 10:35 PM CDT [facility] TOTAL PROTEIN 7.3 6.0 - 8.0 g/dL 01/10/2025 10:35 PM CDT [facility] ALBUMIN 4.2 3.5 - 5.0 g/dL 01/10/2025 10:35 PM CDT [facility] A/G RATIO 1.4 1.0 - 2.2 01/10/2025 10:35 PM CDT [facility] CALCIUM 8.7 8.7 - 10.5 mg/dL 01/10/2025 10:35 PM CDT [facility] T BILI 0.5 0.2 - 1.2 mg/dL 01/10/2025 10:35 PM CDT [facility] SGOT (AST) 32 <43 U/L 01/10/2025 10:35 PM CDT [facility] SGPT (ALT) 36 <56 U/L 01/10/2025 10:35 PM CDT [facility] ALKALINE PHOSPHATASE 77 40 - 150 U/L 01/10/2025 10:35 PM CDT [facility] GFR, ESTIMATED >60 >=60 01/10/2025 10:35 PM CDT [facility] Comment: Creatinine Clearance is the preferred criteria for selecting drug dose adjustments in renally impaired patients. The GFR is provided as additional pertinent clinical information. GFR is reported in mL/min/1.73 sq m. Calculation based on the Chronic Kidney Disease Epidemiology Collaboration (CKD- EPI) equation refit without adjustment for race. GFR, EST. >60 >=60 025 10:35 PM CDT [facility] GFR, EST. NONAFRICAN >60 >=60 01/10/2025 10:35 PM CDT [facility] Blood Venipuncture / Unknown 01/10/2025 9:54 PM CDT 01/10/2025 10:08 PM CDT us Pankaj Wilson MD CHEMISTRY ORDERABLES Renay sandra Result [facility] [address] [place] [address] * THYROXINE (T4) FREE (12/10/2024 4:13 PM CDT) T4 FREE 0.8 0.7 - 1.9 ng/dL 12/10/2024 5:03 PM CDT [facility] Blood Venipuncture / Unknown 12/10/2024 4:13 PM CDT 12/10/2024 4:13 PM CDT us Monster Chew MD CHEMISTRY ORDERABLES Final Resul t [facility] [address] [place] [address] * THYROID STIMULATING HORMONE (TSH) (12/10/2024 4:13 PM CDT) TSH 0.522 0.300 - 5.000 mIU/L 12/10/2024 5:03 PM CDT [facility] Blood Venipuncture / Unknown 12/10/2024 4:13 PM CDT 12/10/2024 4:13 PM CDT us Monster Chew MD CHEMISTRY ORDERABLES Final Resul t Performing Organization Address City/[facility]/ZIP Co de Phone Number [facility] [address] [place] [address] * TRIIODOTHYRININE (T3) TOTAL (12/10/2024 3:25 PM CDT) T3 124 40 - 193 ng/dL 12/11/2024 12:13 AM CDT [facility] Blood Venipuncture / Unknown 12/10/2024 3:25 PM CDT 12/10/2024 4:13 PM CDT us Monster Chew MD CHEMISTRY ORDERABLES Final Resul t [facility] [address] [place] [address], * EKG 12 LEAD (11/15/2024 9:31 AM CDT) Ventricular Rate 86 BPM EXTERNAL EKG Atrial Rate 86 BPM EXTERNAL EKG P-R Interval 126 ms EXTERNAL EKG QRS Duration 90 ms EXTERNAL EKG Q-T Duration 386 ms EXTERNAL EKG QTC CALCULATION 461 ms EXTERNAL EKG P [place] 46 degrees EXTERNAL EKG R [place] 50 degrees EXTERNAL EKG T [place] 49 degrees EXTERNAL EKG 11/15/2024 9:31 AM CDT Impressions EXTERNAL EKG - 11/17/2024 10:54 PM CDT Normal sinus rhythm Normal ECG No previous ECGs available Confirmed by Surekha Good ([id number]) on 11/17/2024 10:54:20 PM Narrative Procedure Note Surekha Good DO - 11/17/2024 IMPRESSION: Normal sinus rhythm Normal ECG No previous ECGs available Confirmed by Surekha Good ([id number]) on 11/17/2024 10:54:20 PM Juan J Damon MD IMG ECG ORDERABLES Final Result EXTERNAL EKG * CARDIAC TEST GENERIC (11/15/2024 12:00 AM CDT) Anatomical Region Laterality Modality Other 11/15/2024 us Provider Scan CV PROCEDURES SCHED Final Result from Last 3 Months Insurance [facility] Care Teams Board Certified Family Physician Relationship Specialty Start Date End Date Annelise Ardon, SNELLER HAND, SHREDDED FILLER CUTTER OPERATOR [address] [place], [place] [id number] PCP - General Advanced Practice Nurse 10/07/24 Melissa Christensen MD [address] [place] [address] [id number] Consulting Physician Radiation Oncology 09/03/20 Robinson Jackson MD PhD [address] [address] Consulting Physician Gynecologic Oncology 09/03/20 Luke Canales MD [address] 5101[address] Consulting Physician Obstetrics & Gynecology 09/03/20 Fabien Huang MD [address] [place] [address] Consulting Physician Radiation Oncology 09/03/20 Andreas Barkley MD [address] [place] [address] Consulting Physician Medical Oncology 09/03/20 Monster Chew MD [address] [id number] Consulting Physician Endocrinology 11/28/24
--- OUTSIDE RECORDS SUMMARY | 2025-01-30 12:42 | XMS_ITS | Clinical Summary ---
Author Organization [facility] Address [address] [place] [address] Care Team Providers Care Luggage Repairer Name Role Phone Poly Hampton MD Primary Care Provider Allergies Active Allergy Reactions Criticality Noted Date [...] inserted central catheter (PICC) 10/07/2020 Cervix cancer ([facility]) 09/24/2020 Cervical cancer, FIGO stage IIB ([facility] ) 09/03/2020 Family History Medical History [...] patient's age to complete this topic Insurance [facility] C/[employer] [id number] Care Teams Luggage Repairer Relationship Specialty Start Date End Date Poly Hampton MD PCP - General INTERNAL MEDICINE 09/22/20
--- OUTSIDE RECORDS SUMMARY | 2025-01-30 12:42 | XMS_ITS ---
Author Organization [facility] Address [facility] [place] [address] Care Team Providers Care Machine Carton Marker Name Role Phone Poly Hampton MD Primary Care Provider [phone] Active Problems Problem Noted Date Diagnosed Date Iron (Fe) deficiency anemia 10/21/2020 Leukopenia due to antineoplastic chemotherapy Iron deficiency anemia 10/20/2020 Encounter for management of peripherally inserted central catheter (PICC) 10/07/2020 Cervix cancer ([facility]) 09/24/2020 Cervical cancer, FIGO stage IIB ([facility] ) 09/03/2020 Current Treatment and Therapy Plans CISplatin Q7D w/RT (max 75 mg)* Plan Start Date:09/22/2020 Plan Provider:Sergio Adame MD Linked Problems Malignant neoplasm of cervix , unspecified site ([facility]) Treatment Medications CISplatin (PLATINOL) chemo infusion (with additi ves) iron sucrose (VENOFER) every 7 days* Plan Start Date:10/22/2020 Plan Provider:Sergio Adame MD Linked Problems Cervical cancer, FIGO stage IIB ([facility])Iron deficiency anemia, unspecified iron deficiency anemia type Treatment Medications No medications scheduled. Other Current Plans Adult Oncology Blank Supportive Template* Plan Start Date:10/07/2020 Plan Provider:eSrgio Adame MD Linked Problems Encounter for management of peripherally inserted central catheter (PICC) Treatment Medications No medications scheduled. Past Treatment and Therapy Plans
[2025-01-30 12:47] VITALS: BP 122/79; PULSE 91; RESP 16; TEMP 36.6; O2SAT 99
--- NOTE | 2025-01-30 13:08 | ED_ITS ---
HPI - Skin/Abscess/Foreign Bdy General Chief complaint: Skin/Abscess/Foreign Body Stated complaint: Cat Bite Left Arm Time Seen by Provider: 01/30/25 13:08 Source: patient Mode of arrival: ambulatory Limitations: no limitations History of Present Illness HPI narrative: 40 yo F presents with cat bite to L forearm. bit by her cat yesterday. Red and swollen today. Afebrile. Tetanus UTD. All systems reviewed and negative except as noted above. Related Data Allergies Allergy/AdvReac Type Severity Reaction Status Date / Time No Known Allergies Allergy Verified 01/30/25 12:40 [facility] Past Medical History Medical History History of cervical cancer Tobacco use Surgical History Surgical History No pertinent past surgical history Family History Family History Father Hypertension Heart disease Social History Social History Smoking status: Current every day smoker Tobacco type: e-cigarettes/vaping Substance use: never Living arrangements: with family Gender identity (if verbalized by the patient): Female Sexual Orientation (if Verbalized by the Patient): Straight or Heterosexual Spiritual care concerns: No Comments Reviewed Exam Narrative: GENERAL: This is a well-nourished, well-developed patient, in no apparent distress. HEAD: normocephalic, atraumatic. EYES: PERRL. Sclera clear/white. Vision is grossly intact. EARS: External ears normal NOSE: External nose normal NECK: Neck supple, non-tender without lymphadenopathy, masses or thyromegaly. CARDIOVASCULAR: Regular rate and rhythm without murmurs, gallops, or rubs. RESPIRATORY: Clear to auscultation. Breath sounds equal bilaterally. No wheezes, rales, or rhonchi. SKIN: warm, Dry, intact with no suspicious lesions or rash, good texture and turgor. 3 punctures to L forearm with 6cm diameter surrounding erythema with swelling NEURO: awake, alert, and oriented to person, place and time. There were no obvious focal neurologic abnormalities. EXTREMITIES: No joint tenderness, effusion, or edema noted. Course Course Level of Care: Express Care Visit Vital Signs Vital signs: Vital Signs Temperature 36.6 C 01/30/25 12:47 Pulse Rate 91 01/30/25 12:47 Respiratory Rate 16 01/30/25 12:47 Blood Pressure 122/79 01/30/25 12:47 Pulse Oximetry 99 01/30/25 12:47 Oxygen Delivery Room Air 01/30/25 12:47 Temperature 36.6 C 01/30/25 12:47 Pulse Rate 91 01/30/25 12:47 Respiratory Rate 16 01/30/25 12:47 Blood Pressure 122/79 01/30/25 12:47 Pulse Oximetry 99 01/30/25 12:47 Oxygen Delivery Room Air 01/30/25 12:47 reviewed MDM - Skin/Abscess/Foreign Bdy MDM Narrative Medical decision making narrative: will treat cat bite infection with Augmentin. Patient is well-appearing, nontoxic. CMS intact. Afebrile. Patient agrees with plan of care. Differential Diagnosis Differential diagnosis: Likely abscess of skin or subcutaneous tissue, cellulitis and other (cat bite) Discharge Plan Discharge Clinical Impression: Cat bite of left forearm with infection Qualifiers: Encounter type: initial encounter Qualified Code(s): S51.852A - Open bite of left forearm, initial encounter Patient Disposition: Home Condition: Stable Instructions: Antibiotic Form, Animal Bite (ED) Additional Instructions: Take antibiotic as prescribed until gone. Take ibuprofen or Tylenol every 6-8 hours as needed for pain. Follow-up with your doctor as needed. Patient Language: Jordanian Prescriptions: New amoxicillin-pot clavulanate 875-125 mg tablet 1 tablet PO Q12H 10 Days Qty: 20 0RF Follow-up/Referrals: Annelise Ardon RN [Primary Care Provider] - Time of Disposition: 13:16
== END 2025-01-30 13:19 | disposition home or self-care (01) ==
PROVIDERS: Emergency Provider Nurse Practitioner Family; PCP Nurse Practitioner Family
DX: S51.832A Puncture wound without foreign body of left forearm, initial encounter (principal); L08.9 Local infection of the skin and subcutaneous tissue, unspecified; W55.01XA Bitten by cat, initial encounter; F17.290 Nicotine dependence, other tobacco product, uncomplicated; Z85.41 Personal history of malignant neoplasm of cervix uteri
CPT/HCPCS: 99213; G0463